=== PATIENT | female | born 2000 | race Caucasian/White ===

== ENCOUNTER 2022-06-13 19:36 | Inpatient (IN) | payer BC, SELFPAY ==
[2022-06-13] VITALS (9 sets, daily range): BP systolic 113–131; BP diastolic 74–86; PULSE 71–104; RESP 18; TEMP 36.2–36.8; BMI 24.3
[2022-06-13 20:37] LABS: Basophils % 0.4 %; Eosinophils % 0.3 %; Lymphocytes # 1.3 10^3/uL (0.8-4.8); Lymphocytes % 18.3 %; Mean Corpuscular HGB Conc 32.4 g/dL (30.0-36.0); Mean Corpuscular Hemoglobin 26.7 pg (28.0-34.0); Mean Corpuscular Volume 82.5 fl (81-99); Mean Platelet Volume 12.1 fL (7.4-10.4); Monocytes # 0.5 10^3/uL (0.2-0.9); Monocytes % 7.8 %; Neutrophils # 5.01 10^3/uL (1.8-7.7); Neutrophils % 72.6 %; Nucleated Red Blood Cells % 0 %; Platelet Count 217 10^3/cmm (130-400); Red Blood Count 4.12 10^6/uL (4.1-5.3); Red Cell Distribution Width 14.4 % (12.1-15.1); White Blood Count 6.9 10^3/uL (4.0-10.0)
[2022-06-13] MEDS: miSOPROStol 100 mcg tablet 25 MCG VAGINAL (21:21)
--- NOTE | 2022-06-13 21:53 | P.HP_ITS ---
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 The patient's initial care in [place] and she transferred care to [facility] at approximately 36 weeks. Patient had a negative GBS that previous provider. Initial lab work was unremarkable. The patient's fundal height was measuring small for gestational age, otherwise was unremarkable. Present Details : 1 Labs Rubella: Immune RPR: Negative GBS: Negative HBsAG: Negative L&D/Induction Specific History Indication for induction OB: maternal distance and other Review of Systems General: Reports: 10 or more systems reviewed and unremarkable except in HPI and below Narrative: Patient denies contractions, loss of fluid, vaginal bleeding. 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 PFSH: Medical History Chronic allergic rhinitis Surgical History No pertinent past surgical history Family History Other Adopted Social History Smoking and tobacco status: never smoked Alcohol intake: never History History History 1 Term 0 0 Miscarriages/Ectopic 0 Living Children 0 Vitals/I&O/Wt Last Vital Signs Temp 98.2 F 06/13/22 19:33 Pulse 88 06/13/22 21:37 Resp 18 06/13/22 19:33 BP 126/74 06/13/22 21:37 O2 Del Method 06/13/22 19:36 Weight last 48 hrs Weight 66.224 kg Physical Exam Const: COMMON NORMALS: no acute distress HENMT: COMMON NORMALS: normocephalic Neck/C-Spine: COMMON NORMALS: no lymphadenopathy and supple Chest: COMMONS NORMALS: normal inspection of the chest Resp: COMMON NORMALS: normal respiratory effort and No retractions Cardio: COMMON NORMALS: no JVD, regular rate and regular rhythm Extremity: COMMON NORMALS: no clubbing, cyanosis or edema Neuro: COMMON NORMALS: moves all extremities Psych: COMMON NORMALS: mental status grossly normal and normal affect Skin: COMMON NORMALS: no rashes or lesions noted Data 06/13/22 20:18 A&P Assessment and plan (1) Term : Plan to proceed with cervical ripening with Cytotec to initiate induction. Routine cares. Attestations Medical Necessity Statement*: Anticipate greater than 2 midnight stay Coding Level of Care Code Acute Code for Chg Fwd Diagnoses Term Z34.90
[2022-06-14] VITALS (76 sets, daily range): BP systolic 105–211; BP diastolic 56–102; PULSE 61–136; RESP 16–20; TEMP 36–36.9; O2SAT 98–99
[2022-06-14] MEDS: dextrose 5%-lactated ringers 1,000 ML 125 ML IV ×2 (01:56→12:17)
[2022-06-14] MEDS: miSOPROStol 100 mcg tablet 25 MCG VAGINAL (02:04)
[2022-06-14] MEDS: fentaNYL 50 mcg/mL INJ 2mL IVP ×2 (06:48→07:59)
--- NOTE | 2022-06-14 08:09 | PM.OBGYPN ---
RN CLINICAL DOCUMENTATION Subjective Subjective: Interval history: This is a at 40 weeks presented for cervical ripening last night. Patient was given 2 doses of Cytotec and is now carmine regularly every 2 to 3 minutes. heart tones have been reassuring. Labor: Station: -1 Amniotic Membrane Status: Intact Monitor Mode: Palpation Contraction Pattern: Irregular Status: Category I Vitals/I&O/Wt Last Vital Signs Temp 97.8 F 06/14/22 06:52 Pulse 65 06/14/22 07:19 Resp 20 H 06/14/22 07:59 BP 123/75 06/14/22 07:19 O2 Del Method 06/13/22 20:09 06/13/22 06/14/22 06/14/22 22:59 06:59 14:59 Intake Total 89.583 / 89.583 Balance 89.583 / 89.583 Weight last 48 hrs Weight 66.224 kg Physical Exam Const: COMMON NORMALS: no acute distress HENMT: COMMON NORMALS: normocephalic HEAD & SCALP: normocephalic Neck/C-Spine: COMMON NORMALS: no lymphadenopathy, supple and no JVD Chest: COMMONS NORMALS: normal inspection of the chest Resp: COMMON NORMALS: normal respiratory effort and No retractions Cardio: COMMON NORMALS: no JVD, regular rate and regular rhythm RATE: regular rate RHYTHM: regular rhythm Extremity: COMMON NORMALS: no clubbing, cyanosis or edema Neuro: COMMON NORMALS: moves all extremities Psych: COMMON NORMALS: mental status grossly normal and normal affect Skin: COMMON NORMALS: no rashes or lesions noted GENERAL SKIN EXAM: no rashes or lesions noted Data 06/13/22 20:18 A&P Assessment and plan (1) Term : Continue with routine labor management at this time. consider Pitocin if cervical changes are not noted. Attestations Medical Necessity Statement*: Anticipate greater than 2 midnight stay Coding Level of Care Code Acute Code for Chg Fwd Diagnoses Term Z34.90
[2022-06-14] MEDS: lactated ringers 1,000 ML 999 ML IV (08:13)
[2022-06-14] MEDS: alum-mag-hydroxide-sime 30 mL UDC PO (10:10)
--- NOTE | 2022-06-14 11:10 | ANES.PREANE2 ---
Pre-Anesthetic Assessment Height/Weight: Height 1.65 m Weight 66.224 kg Temp Pulse Resp BP Pulse Ox O2 Del Method 97.8 F 88 16 106/56 99 06/14/22 06:52 06/14/22 11:07 06/14/22 10:03 06/14/22 11:07 06/14/22 09:13 06/13/22 20:09 Familial anesthetic complications: none Was Beta Jody taken within 24 hours: N/A Was Clonidine taken within 24 hours: N/A Social No alcohol and No tobacco Exam alert, oriented x 3, clear to auscultation bilaterally and regular rate & rhythm Airway Submandibular: within normal limits Cervical ROM: within normal limits Mallampati: Class II Dentition: full Musc/skel Scoliosis Anesthetic Plan ASA status: 2 Anesthesia: Regional (specify below) (Labor epidural) Medications/Allergies Home Medications Medication Instructions Recorded Confirmed Last Taken Type cetirizine 10 mg capsule (Zyrtec) 10 mg PO DAILY PRN 10/19/20 10/19/20 Unknown History ketoconazole 2 % topical cream 1 applic topical DAILY 2 weeks #15 10/19/20 10/19/20 Unknown Rx grams Allergies Allergy/AdvReac Type Severity Reaction Status Date / Time Penicillins AdvReac Mild unknown Verified 06/14/22 02:41 Current Medications Generic Name Dose Route Start Last Admin Trade Name Freq PRN Reason Stop Dose Admin Al Hydrox/Mg Hydrox/Simethicone 30 ml 06/13/22 20:05 06/14/22 10:10 Wxsv-Gvl-Todgdyibe-Keo 30 Ml Udc PO 30 ml Q4H PRN Administration INDIGESTION Fentanyl 25 - 100 mcg 06/14/22 05:44 06/14/22 07:59 Fentanyl 50 Mcg/Ml Inj 2ml IVP 50 mcg Q1H PRN Administration SEVERE PAIN Dextrose/Lactated Ringer's 1,000 mls @ 125 mls/hr 06/13/22 20:15 06/14/22 07:25 Dextrose 5%-Lactated Ringers IV Not Given .Q8H MELO Ropivacaine 200 mg in 100 mls @ 13 mls/hr 06/14/22 08:15 06/14/22 09:21 Naropin Premix EPIDURAL 13 mls/hr .Q7H42M MELO Administration Lactated Ringer's 1,000 mls @ 999 mls/hr 06/14/22 08:08 06/14/22 08:13 Lactated Ringers IV 999 mls/hr .Q1H1M PRN Administration See label comments PFSH Anesthesia Medical History Chronic allergic rhinitis Surgical History No pertinent past surgical history Family History Other Adopted Social History Smoking and tobacco status: never smoked Alcohol intake: never Female Reproductive History : 1 Data Anesthesia 06/13/22 20:18 Short CBC 06/13/22 Range/Units 20:18 WBC 6.9 (4.0-10.0) 10^3/uL Hgb 11.0 L (11.5-15.3) g/dL Hct 34.0 L (37.0-47.0) % MCV 82.5 (81-99) fl Plt Count 217 (130-400) 10^3/cmm Neut % (Auto) 72.6 % Neut # (Auto) 5.01 (1.8-7.7) 10^3/uL Cardiac Studies: No Data to Display Anesthesia Procedures Epidural Time Out Performed: Yes Consents Signed: Procedure Consent Consent: requested by attending/covering physician, from patient, risks and benefits reviewed and patient agrees to proceed Lumbar Level: L3-L4 Epidural position: sitting Epidural procedure: sterile prep of area, 1% lidocaine to numb the area, 18 g needle, neg for paresthesia, test dose given, 1.5% xylocaine 1:200k epi, placed PCEA, no systemic response, sterile dressing applied, L.U.D. no apparent complications and 0.2% Ropiavacaine @ mls/hr (13) Additional Comments: SAL at 4cm, cath at 9cm, bolused 5mls of 2% lido/epi
[2022-06-14] MEDS: oxytocin 30 UNIT/500 ML BAG 600 UNIT IV (17:50)
--- NOTE | 2022-06-14 18:17 | P.PCNOB_ITS ---
Delivery Note: Date of delivery: June 14, 2022 Pre-delivery diagnoses: Term intrauterine Post-delivery diagnoses: Same, viable male Procedure: Spontaneous vaginal delivery Delivering Physician: Dr. Elbert Valdez Estimated blood loss (mL): 200 Pre-Delivery Course: This is a 21-year-old G1, P1 that presented for induction of labor at 39 weeks 6 days. Patient started with cervical ripening with Cytotec she received 2 doses overnight which she had at contractions and labor. Contractions continued to increase to the point where she was approximately 3 to 4 cm dilated and official rupture of membranes was performed. Patient then slowly progressed to completion. Delivery: Once patient was complete patient was put into the lithotomy position and started pushing. Pushed with contractions for approximately 45 minutes before delivering a viable infant female vaginally. Since then he did due to deliver the placenta without issue. Review of the perineum after del joshua showed a second-degree perineal tear with extension going up the left labia. This was repaired with 2-0 Vicryl. Post-Delivery Status: Mother was stable and bleeding was controlled. History History History 1 Term 0 0 Miscarriages/Ectopic 0 Living Children 0 A&P Assessment and plan (1) Term : (2) Normal vaginal delivery: Proceed with routine care. Coding Level of Care Code Acute Code for Chg Fwd Diagnoses Term Z34.90 Normal vaginal delivery O80
[2022-06-14] MEDS: lanolin oint 7 gm 1 APPLIC TOPICAL (19:51)
[2022-06-14] MEDS: benzocaine-menthol 78 gm Canister 1 SPRAY TOPICAL (19:51)
[2022-06-14] MEDS: ibuprofen 800 mg tablet PO (20:10)
[2022-06-14] MEDS: HYDROcodone-acetaminophen 5-325 mg Tablet PO (23:18)
[2022-06-15 00:37] VITALS: BP 121/72; PULSE 94; RESP 18; TEMP 36.6
[2022-06-15 02:35] VITALS: BP 117/69; PULSE 83
[2022-06-15] MEDS: HYDROcodone-acetaminophen 5-325 mg Tablet PO (03:16)
[2022-06-15 05:49] LABS: Hematocrit 27.1 % (37.0-47.0); Hemoglobin 8.7 g/dL (11.5-15.3); Mean Corpuscular HGB Conc 32.1 g/dL (30.0-36.0); Mean Corpuscular Hemoglobin 27.1 pg (28.0-34.0); Mean Corpuscular Volume 84.4 fl (81-99); Mean Platelet Volume 12.4 fL (7.4-10.4); Platelet Count 158 10^3/cmm (130-400); Red Blood Count 3.21 10^6/uL (4.1-5.3); Red Cell Distribution Width 14.6 % (12.1-15.1); White Blood Count 11.7 10^3/uL (4.0-10.0)
[2022-06-15 06:08] VITALS: BP 122/73; PULSE 73
[2022-06-15 06:09] VITALS: RESP 18; TEMP 36.5
[2022-06-15] MEDS: acetaminophen 325 mg Tablet 650 MG PO (06:54)
--- NOTE | 2022-06-15 07:28 | ANE.PACU2 ---
Inpatient post-anesthesia follow up: Airway intact: Yes Vital signs: Temperature 97.7 F Pulse Rate 73 Respiratory Rate 18 Blood Pressure 122/73 Pulse Oximetry 99 Oxygen Delivery Me thod Room Air Oxygen Flow Rate Fraction of Inspir ed Oxygen Hydration adequate: Yes Nausea and vomiting: No Pain level: 2 Mental status: Baseline
--- NOTE | 2022-06-15 07:37 | P.PN_ITS ---
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 Vital signs are stable. Lochia is appropriate. Patient reports good pain control. Labor: Station: +1 Amniotic Membrane Status: Ruptured Monitor Mode: Palpation Contraction Pattern: Regular Status: Category I Post /CS: [place] baby status: doing well feeding status: exclusively breast feeding Vitals/I&O/Wt Last Vital Signs Temp 97.7 F 06/15/22 06:09 Pulse 73 06/15/22 06:08 Resp 18 06/15/22 06:09 BP 122/73 06/15/22 06:08 Pulse Ox 99 06/14/22 09:13 O2 Del Method 06/15/22 06:09 06/14/22 06/15/22 06/15/22 22:59 06:59 14:59 Intake Total 2415.183 / 3425.600 Output Total 1300 / 1300 650 / 1950 Balance 1115.183 / 2125.600 -650 / 1475.600 Weight last 48 hrs Weight 66.224 kg Physical Exam Const: COMMON NORMALS: no acute distress HENMT: COMMON NORMALS: normocephalic HEAD & SCALP: normocephalic Neck/C-Spine: COMMON NORMALS: no lymphadenopathy, supple and no JVD Chest: COMMONS NORMALS: normal inspection of the chest Resp: COMMON NORMALS: normal respiratory effort and No retractions Cardio: COMMON NORMALS: no JVD, regular rate and regular rhythm RATE: regular rate RHYTHM: regular rhythm Extremity: COMMON NORMALS: no clubbing, cyanosis or edema Neuro: COMMON NORMALS: moves all extremities Psych: COMMON NORMALS: mental status grossly normal and normal affect Skin: COMMON NORMALS: no rashes or lesions noted GENERAL SKIN EXAM: no rashes or lesions noted Urinary Catheter Management: Diana: Cath Placed During This Visit: yes, but has since been removed by the nurse Reason for Continuing Indwelling Catheter: Decision to DC Catheter Urinary Catheter Date of Insertion: 06/14/22 Urinary Catheter Time of Insertion: 10:03 Date Urinary Catheter Removed: 06/14/22 Time Urinary Catheter Discontinued: 16:45 Data 06/15/22 05:40 A&P Assessment and plan (1) care following vaginal delivery: Continue routine care. Attestations Medical Necessity Statement*: Anticipate discharge home later this evening or tomorrow. Coding Level of Care Code Acute Code for Chg Fwd Diagnoses care following vaginal delivery Z39.2
[2022-06-15] MEDS: docusate sodium 100 mg Capsule PO ×2 (09:50→21:57)
[2022-06-15] MEDS: ibuprofen 800 mg tablet PO ×3 (09:50→21:56)
[2022-06-15 16:45] VITALS: BP 131/84; PULSE 118
[2022-06-15 21:59] VITALS: BP 125/77; PULSE 102
[2022-06-16 04:00] VITALS: BP 100/58; PULSE 83
[2022-06-16 06:00] VITALS: PULSE 80; RESP 15; TEMP 36.7
--- NOTE | 2022-06-16 08:10 | P.DS_ITS ---
Discharge Providers TRAVEL CONSULTANT Date of Admission: 06/13/22 19:36 Date of Discharge: 07/05/22 Attending Provider at Admission: Gregory Valdez MD Attending Provider at Discharge: Gregory Valdez MD Primary Care Provider: Marissa Westfall DO Diagnoses at Discharge Discharge Diagnosis (1) care following vaginal delivery: Status: Acute Reason for Visit Reason for Visit: induction Brief History: Patient presents for IOL for post dates. Hospital Course Hospital Course This a 21 y/o that presented for IOL.. She has had no complications except for decreased fundal height. She was started on cytotec which initiated labor. She progressed throughout the day till completion. She then delivered a viable infant female vaginally. She had a 2nd degree tear that was repaired. Patient's post care was unremarkable. Information Peripartum Data: Infant Delivery Method: Vaginal Laceration description: Perineal - 2nd Degree Physical Exam Const: COMMON NORMALS: no acute distress HENMT: COMMON NORMALS: normocephalic HEAD & SCALP: normocephalic Neck/C-Spine: COMMON NORMALS: no lymphadenopathy, supple and no JVD Chest: COMMONS NORMALS: normal inspection of the chest Resp: COMMON NORMALS: normal respiratory effort and No retractions Cardio: COMMON NORMALS: no JVD, regular rate and regular rhythm RATE: regular rate RHYTHM: regular rhythm Extremity: COMMON NORMALS: no clubbing, cyanosis or edema Neuro: COMMON NORMALS: moves all extremities Psych: COMMON NORMALS: mental status grossly normal and normal affect Skin: COMMON NORMALS: no rashes or lesions noted GENERAL SKIN EXAM: no rashes or lesions noted Urinary Catheter Management: Diana: Cath Placed During This Visit: yes, but has since been removed by the nurse Reason for Continuing Indwelling Catheter: Decision to DC Catheter Urinary Catheter Date of Insertion: 06/14/22 Urinary Catheter Time of Insertion: 10:03 Date Urinary Catheter Removed: 06/14/22 Time Urinary Catheter Discontinued: 16:45 History History History 1 Term 0 0 Miscarriages/Ectopic 0 Living Children 1 Discharge Data Studies Completed and Pending Laboratory Results WBC 11.7 10^3/uL (4.0-10.0) H 06/15/22 05:40 RBC 3.21 10^6/uL (4.1-5.3) L 06/15/22 05:40 Hgb 8.7 g/dL (11.5-15.3) L 06/15/22 05:40 Hct 27.1 % (37.0-47.0) L 06/15/22 05:40 MCV 84.4 fl (81-99) 06/15/22 05:40 MCH 27.1 pg (28.0-34.0) L 06/15/22 05:40 MCHC 32.1 g/dL (30.0-36.0) 06/15/22 05:40 RDW 14.6 % (12.1-15.1) 06/15/22 05:40 Plt Count 158 10^3/cmm (130-400) 06/15/22 05:40 MPV 12.4 fL (7.4-10.4) H 06/15/22 05:40 Neut % (Auto) 72.6 % 06/13/22 20:18 Lymph % (Auto) 18.3 % 06/13/22 20:18 [place] % (Auto) 7.8 % 06/13/22 20:18 Eos % (Auto) 0.3 % 06/13/22 20:18 Baso % (Auto) 0.4 % 06/13/22 20:18 Neut # (Auto) 5.01 10^3/uL (1.8-7.7) 06/13/22 20:18 Lymph # (Auto) 1.3 10^3/uL (0.8-4.8) 06/13/22 20:18 [place] # (Auto) 0.5 10^3/uL (0.2-0.9) 06/13/22 20:18 Eos # (Auto) 0.0 10^3/uL (0.0-0.8) 06/13/22 20:18 Baso # (Auto) 0.0 10^3/uL (0.0-0.1) 06/13/22 20:18 Nucleated RBC % (auto) 0 % 06/13/22 20:18 Nucleated RBCs # 0.0 /100WBC 06/13/22 20:18 Vitals Last Vital Signs Temp 98.0 F 06/16/22 06:00 Pulse 80 06/16/22 06:00 Resp 15 06/16/22 06:00 BP 100/58 06/16/22 04:00 Pulse Ox 99 06/14/22 09:13 O2 Del Method 06/15/22 06:09 Discharge Plan Discharge Patient Disposition: Home Condition: Stable Prescriptions: Continued Zyrtec 10 mg capsule 10 mg PO DAILY PRN ketoconazole 2 % cream 1 applic topical DAILY 14 Days Qty: 15 0RF Discharge Orders: Discharge Order (Routine); Ordered 06/16/22 Ordered By: Gregory Valdez Referrals: Gregory Valdez MD [Physician] - 07/21/22 11:00 am (Your followup appointment with Dr. Valdez is Jul.21 at 11:00am.) Discharge Diet: Usual diet Discharge Activity: Limit activity as instructed Patient Instructions: Depression (GEN), Bleeding (GEN), Preeclampsia and Eclampsia After Delivery (GEN), Vaginal Delivery (GEN), Hemorrhage (GEN), OB Discharge Report, OB Food/Drug Interaction Guide, OB Care at Home, Opioid Safety, OB Home Care, OB Vaginal Deliveries Discharge Attestations TRAVEL CONSULTANT Time Spent in Discharge Care*: less than 30 min Coding Level of Care Code Acute Code for Chg Fwd Diagnoses care following vaginal delivery Z39.2
[2022-06-16 09:05] VITALS: TEMP 37
[2022-06-16 09:06] VITALS: BP 97/57; PULSE 75
[2022-06-16] MEDS: docusate sodium 100 mg Capsule PO ×2 (09:06→14:28)
[2022-06-16] MEDS: ibuprofen 800 mg tablet PO ×2 (09:06→14:28)
[2022-06-16 14:00] VITALS: BP 134/67; PULSE 109; RESP 17; TEMP 36.8
[2022-06-16 14:30] VITALS: BP 134/67; PULSE 122
== END 2022-06-16 15:40 | disposition home or self-care (01) | DRG 807 ==
LOC: OPOB 19:37 → OBGYN 19:37
PROVIDERS: Admitting Provider Family Medicine; PCP Family Medicine; Visit Provider Family Medicine
DX: O70.1 Second degree perineal laceration during delivery (principal); Z37.0 Single live birth; O71.82 Other specified trauma to perineum and vulva; Z3A.39 39 weeks gestation of pregnancy
CPT/HCPCS: 36415; 51702; 59025; 59409; 85025; 85027; 96374; 96376; J2590; J2795; J3010; J7120; J7121